=== PATIENT | female | born 1955 | race Asian ===

== ENCOUNTER 2019-03-13 16:21 | Emergency (ER) | payer OTHER ==
[~2019-03-13] VITALS: Ht 162.6 cm; Wt 77.1 kg
[2019-03-13 16:42] VITALS: Ht 162.6 cm; Wt 77.1 kg
[2019-03-13 17:42] LABS: BASOPHIL % 0.6 % (0-2); PLATELET COUNT 308 x10^3mcL (130-400); RED CELL DISTRIBUTION WIDTH 12.2 % (11.5-14.5)
[2019-03-13 18:43] LABS: CALCIUM 8.7 mg/dL (8.5-10.1); CARBON DIOXIDE 24.7 mmol/L (21-32); CHLORIDE SERUM 109 mmol/L (98-107); CREATININE SERUM 0.4 mg/dL (0.6-1.0); GFR1 > 60 mL/min; GLUCOSE SERUM 113 mg/dL (74-106); POTASSIUM SERUM 3.4 mmol/L (3.5-5.1); SODIUM SERUM 147 mmol/L (136-145)
[2019-03-13 18:50] LABS: ALBUMIN 3.8 g/dL (3.4-5.0); ALKALINE PHOSPHATASE 52 U/L (46-116); ALT/SGPT 26 U/L (14-59); AST/SGOT 21 U/L (15-37); BILIRUBIN TOTAL 0.9 mg/dL (0.20-1.00); TOTAL PROTEIN, SERUM 7.6 g/dL (6.4-8.2)
[2019-03-13 19:58] VITALS: BP 97/56
== END 2019-03-13 19:50 | disposition home or self-care (01) ==
LOC: ED 16:21
DX: R07.89 Other chest pain (principal); R51 Headache; F43.0 Acute stress reaction
CPT/HCPCS: J2405; J3010; Q0092